=== PATIENT | female | born 1945 | race Two or more races ===

== ENCOUNTER → 2017-01-17 | Outpatient (CLI) | payer OTHER ==
[~2017-01-17] MED LIST: AMLO-511 PO; CARV12 PO; DOCU250C91 PO; FENO130C8 PO; LOSA50TA37 PO; METF500T7 PO; OMEP20 PO; ROSU10 PO; SITA100 PO; VIT. D; WARF1 PO
== END | disposition home or self-care (01) ==
LOC: RADPV 08:55
PROVIDERS: ATTEND Internal Medicine Cardiovascular Disease
DX: I35.0 Nonrheumatic aortic (valve) stenosis (principal); I08.3 Combined rheumatic disorders of mitral, aortic and tricuspid valves; I50.1 Left ventricular failure, unspecified
CPT/HCPCS: 93306